=== PATIENT | male | born 1950 | race Asian ===

== ENCOUNTER 2021-02-28 07:25 | Inpatient (IN) | payer OTHER ==
[~2021-02-28] VITALS: Ht 157.5 cm; Wt 60.0 kg
[2021-02-28] MEDS ORDERED: TAMSULOSIN HYDROCHLORIDE 0.4 MG CAP PO ONE (07:45)
[2021-02-28] MEDS ORDERED: SODIUM CHLORIDE 0.9% 1,000 ML IV ONE ×2 (07:45)
[2021-02-28] MEDS ORDERED: KETOROLAC TROMETH 30 MG/ML 1ML VIAL IV ONE (07:45)
[2021-02-28 08:09] LABS: Basophils # (auto) 0.1 10 ^3/uL (0-0.2); Basophils % (auto) 0.6 % (0.0-2.0); Eosinophils # (auto) 0.1 10 ^3/uL (0-0.8); Eosinophils % (auto) 1.7 % (0.0-7.0); Hematocrit 38.7 % (41.0-53.0); Hemoglobin 13.4 g/dL (13.5-17.5); Lymphocytes # (auto) 1.3 10 ^3/uL (0.4-5.4); Lymphocytes % (auto) 14.9 % (10.0-50.0); Mean Corpuscular Hemoglobin 30.6 pg (28.0-32.0); Mean Corpuscular Hgb Conc. 34.7 g/dL (32.0-36.0); Mean Corpuscular Volume 88.3 fL (80.0-100.0); Monocytes # (auto) 0.7 10 ^3/uL (0-1.3); Monocytes % (auto) 8.2 % (0.0-12.0); Neutrophils # (auto) 6.5 10 ^3/uL (1.6-8.6); Neutrophils % (auto) 74.6 % (37.0-80.0); Platelet Count (auto) 169 10^3/uL (140-450); Red Blood Cells 4.39 10^6/uL (4.5-5.90); Red Cell Distribution Width 13.6 % (11.8-14.3); White Blood Cell 8.7 10^3/uL (4.4-10.8)
[2021-02-28 08:24] LABS: Albumin 4.1 g/dL (3.4-5.0); Calcium 8.9 mg/dL (8.5-10.1); Magnesium 2.1 mg/dL (1.6-2.6); Potassium 3.4 mmol/L (3.5-5.1)
[2021-02-28 08:26] LABS: BUN/Creatinine Ratio 15.3
[2021-02-28 08:42] LABS: Bilirubin, Total 1.3 mg/dL (0.2-1.0); Total Protein 7.2 g/dL (6.4-8.2)
[2021-02-28] MEDS ORDERED: LORazepam 0.5 MG TAB PO ONE (09:30)
[2021-02-28] MEDS ORDERED: ONDANSETRON HCL 4 MG/2 ML VIAL IV ONE (09:30)
[2021-02-28] MEDS ORDERED: MORPHINE SULFATE 4 MG/ML SYR/VIAL IV ONE (09:30)
[2021-02-28] MEDS ORDERED: ACETAMINOPHEN 500 MG TAB PO PRN (10:00)
[2021-02-28] MEDS ORDERED: MORPHINE SULF INJ 2 MG/ML SYRINGE 1ML IV PRN (10:00)
[2021-02-28] MEDS ORDERED: ONDANSETRON HCL 4 MG/2 ML VIAL IV PRN (10:00)
[2021-02-28] MEDS ORDERED: TEMAZEPAM 15 MG CAP PO PRN (10:00)
[2021-02-28] MEDS ORDERED: NITROGLYCERIN 0.4 MG SL TAB SL PRN (10:00)
[2021-02-28] MEDS ORDERED: cefTRIAXone 1GM/50ML D5W 50 ML IV ONE (10:00)
[2021-02-28] MEDS: SODIUM CHLORIDE 0.9% 1,000 ML IV SCH ×2 (10:58→20:38)
[2021-02-28] MEDS: FAMOTIDINE (10MG/ML) 2ML VL IV SCH (11:01)
[2021-02-28 11:34] LABS: Urine Bacteria NONE SEEN /hpf (None Seen); Urine Blood 2+ /uL (Negative); Urine Specific Gravity 1.011 (1.001-1.035); Urine WBC 1 /hpf (0 - 3)
[2021-02-28 18:24] VITALS: BP 126/68
[2021-02-28] MEDS ORDERED: MANNITOL FTV 25% 12.5 GM/50 ML 50 ML IV ONE (19:00)
[2021-02-28] MEDS ORDERED: TAMS0.4C36 PO (19:10)
[2021-02-28] MEDS: TAMSULOSIN HYDROCHLORIDE 0.4 MG CAP PO SCH (20:37)
[2021-02-28 22:00] VITALS: BP 114/65
[2021-03-01] MEDS: MORPHINE SULF INJ 2 MG/ML SYRINGE 1ML IV PRN ×2 (00:29→11:28)
[2021-03-01] MEDS: traMADol HCL 50 MG TAB PO PRN ×2 (02:46→12:51)
[2021-03-01 05:00] VITALS: BP 118/72
[2021-03-01 05:33] LABS: Basophils # (auto) 0 10 ^3/uL (0-0.2); Basophils % (auto) 0.1 % (0.0-2.0); Eosinophils # (auto) 0.2 10 ^3/uL (0-0.8); Eosinophils % (auto) 3.3 % (0.0-7.0); Hematocrit 33.3 % (41.0-53.0); Hemoglobin 11.6 g/dL (13.5-17.5); Lymphocytes # (auto) 0.9 10 ^3/uL (0.4-5.4); Lymphocytes % (auto) 12.3 % (10.0-50.0); Mean Corpuscular Hemoglobin 30.9 pg (28.0-32.0); Mean Corpuscular Hgb Conc. 34.9 g/dL (32.0-36.0); Mean Corpuscular Volume 88.4 fL (80.0-100.0); Monocytes # (auto) 0.6 10 ^3/uL (0-1.3); Monocytes % (auto) 7.7 % (0.0-12.0); Neutrophils # (auto) 5.6 10 ^3/uL (1.6-8.6); Neutrophils % (auto) 76.6 % (37.0-80.0); Platelet Count (auto) 135 10^3/uL (140-450); Red Blood Cells 3.77 10^6/uL (4.5-5.90); Red Cell Distribution Width 13.7 % (11.8-14.3); White Blood Cell 7.3 10^3/uL (4.4-10.8)
[2021-03-01 05:46] LABS: Albumin 2.7 g/dL (3.4-5.0); Calcium 7.5 mg/dL (8.5-10.1); Potassium 3.5 mmol/L (3.5-5.1)
[2021-03-01 05:49] LABS: BUN/Creatinine Ratio 15.8
[2021-03-01 09:00] VITALS: BP 132/78
[2021-03-01] MEDS: FAMOTIDINE (10MG/ML) 2ML VL IV SCH (10:06)
[2021-03-01] MEDS: cefTRIAXone 1GM/50ML D5W 50 ML IV SCH (10:06)
[2021-03-01] MEDS: SODIUM CHLORIDE 0.9% 1,000 ML IV SCH ×2 (10:09→16:00)
[2021-03-01 13:00] VITALS: BP 141/79
[2021-03-01] MEDS ORDERED: HYDROmorphone HCL 2 MG/ML VL IV ONE (13:00)
[2021-03-01 16:58] VITALS: BP 140/60
[2021-03-01] MEDS: TAMSULOSIN HYDROCHLORIDE 0.4 MG CAP PO SCH (18:00)
[2021-03-01] MEDS: HYDROmorphone HCL 2 MG/ML VL IV PRN (20:05)
[2021-03-01] MEDS ORDERED: MILK OF MAGNESIA 30ML SUSP PO ONE (20:30)
[2021-03-01 22:00] VITALS: BP 138/85
[2021-03-01] MEDS ORDERED: MANNITOL FTV 25% 12.5 GM/50 ML 50 ML IV ONE (22:30)
[2021-03-02] MEDS ORDERED: SODIUM CHLORIDE 0.9% 500 ML IV ONE ×2 (00:30→22:00)
[2021-03-02] MEDS: HYDROmorphone HCL 2 MG/ML VL IV PRN ×3 (01:10→18:03)
[2021-03-02] MEDS: SODIUM CHLORIDE 0.9% 1,000 ML IV SCH ×3 (03:03→21:33)
[2021-03-02 05:00] VITALS: BP 152/91
[2021-03-02 05:54] LABS: Hematocrit 37.5 % (41.0-53.0); Hemoglobin 12.7 g/dL (13.5-17.5)
[2021-03-02 06:07] LABS: Potassium 3.7 mmol/L (3.5-5.1)
[2021-03-02 06:11] LABS: BUN/Creatinine Ratio 13.4; Calcium 7.8 mg/dL (8.5-10.1); Magnesium 2.2 mg/dL (1.6-2.6)
[2021-03-02 08:52] VITALS: BP 149/93
[2021-03-02] MEDS: cefTRIAXone 1GM/50ML D5W 50 ML IV SCH (09:43)
[2021-03-02] MEDS: FAMOTIDINE (10MG/ML) 2ML VL IV SCH (09:43)
[2021-03-02 13:00] VITALS: BP 159/97
[2021-03-02] MEDS ORDERED: LACTULOSE 20Gm/30ML SOLN PO PRN (13:45)
[2021-03-02] MEDS ORDERED: DOCUSATE SOD 100 MG CAP PO ONE (13:45)
[2021-03-02 16:49] VITALS: BP 160/90
[2021-03-02] MEDS: TAMSULOSIN HYDROCHLORIDE 0.4 MG CAP PO SCH (18:03)
[2021-03-02] MEDS ORDERED: MANNITOL FTV 25% 12.5 GM/50 ML 50 ML IV ONE (20:00)
[2021-03-02] MEDS: DOCUSATE SOD 100 MG CAP PO SCH (21:33)
[2021-03-02 22:00] VITALS: BP 167/105
[2021-03-02] MEDS ORDERED: cloNIDine HCL 0.1 MG TAB PO ONE (22:30)
[2021-03-03] MEDS: HYDROmorphone HCL 2 MG/ML VL IV PRN ×3 (00:22→18:34)
[2021-03-03 05:00] VITALS: BP 146/89
[2021-03-03] MEDS: SODIUM CHLORIDE 0.9% 1,000 ML IV SCH ×2 (08:00→18:00)
[2021-03-03 09:00] VITALS: BP 136/83
[2021-03-03] MEDS: cefTRIAXone 1GM/50ML D5W 50 ML IV SCH (09:22)
[2021-03-03] MEDS: traMADol HCL 50 MG TAB PO PRN (09:22)
[2021-03-03] MEDS: DOCUSATE SOD 100 MG CAP PO SCH ×2 (10:00→22:00)
[2021-03-03] MEDS: FAMOTIDINE (10MG/ML) 2ML VL IV SCH (10:26)
[2021-03-03 11:33] LABS: BUN/Creatinine Ratio 11.1; Calcium 7.9 mg/dL (8.5-10.1); Potassium 3.6 mmol/L (3.5-5.1)
[2021-03-03 13:02] VITALS: BP 133/83
[2021-03-03] MEDS ORDERED: hydrALAZINE HCL 20 MG/ML VL IV PRN (13:45)
[2021-03-03 14:27] LABS: INR 1.03 (0.9-1.15)
[2021-03-03 17:09] VITALS: BP 148/91
[2021-03-03] MEDS: TAMSULOSIN HYDROCHLORIDE 0.4 MG CAP PO SCH (18:00)
[2021-03-03] MEDS ORDERED: SODIUM CHLORIDE LOCK 10 ML ONE (21:04)
[2021-03-03] MEDS ORDERED: ONDANSETRON HCL 4 MG/2 ML VIAL ONE (21:04)
[2021-03-03] MEDS ORDERED: MIDAZOLAM HCL 1MG/1ML-2 ML VIAL ONE (21:04)
[2021-03-03] MEDS ORDERED: PROPOFOL 10 MG/ML 20 ML IV ONE ×2 (21:04→21:48)
[2021-03-03] MEDS ORDERED: fentaNYL CITRATE 100 MCG/2 ML VL ONE (21:04)
[2021-03-03] MEDS ORDERED: KETAMINE HCL 10 ML ONE (21:04)
[2021-03-03] MEDS ORDERED: ceFAZolin 1GM/50ML 50 ML IV ONE (21:25)
[2021-03-03] MEDS ORDERED: IOHEXOL 300 MG/ML 100ML BOTTLE IJ ONE (21:39)
[2021-03-03] MEDS ORDERED: FUROSEMIDE 20 MG/2 ML VIAL ONE (22:19)
[2021-03-03] MEDS ORDERED: HYDROmorphone HCL 2 MG/ML VL IV PRN (22:30)
[2021-03-03] MEDS ORDERED: MORPHINE SULFATE 4 MG/ML SYR/VIAL IV PRN (22:30)
[2021-03-04 00:30] VITALS: BP 153/80
[2021-03-04] MEDS: SODIUM CHLORIDE 0.9% 1,000 ML IV SCH (04:13)
[2021-03-04 05:15] VITALS: BP 140/79
[2021-03-04 06:32] LABS: Basophils # (auto) 0 10 ^3/uL (0-0.2); Basophils % (auto) 0.1 % (0.0-2.0); Eosinophils # (auto) 0.1 10 ^3/uL (0-0.8); Hematocrit 34.6 % (41.0-53.0); Hemoglobin 11.7 g/dL (13.5-17.5); Lymphocytes # (auto) 0.5 10 ^3/uL (0.4-5.4); Lymphocytes % (auto) 7.1 % (10.0-50.0); Mean Corpuscular Hemoglobin 30.2 pg (28.0-32.0); Mean Corpuscular Hgb Conc. 33.9 g/dL (32.0-36.0); Monocytes # (auto) 0.5 10 ^3/uL (0-1.3); Neutrophils # (auto) 5.5 10 ^3/uL (1.6-8.6); Neutrophils % (auto) 84.8 % (37.0-80.0); Platelet Count (auto) 143 10^3/uL (140-450); Red Blood Cells 3.89 10^6/uL (4.5-5.90); Red Cell Distribution Width 13.2 % (11.8-14.3); White Blood Cell 6.5 10^3/uL (4.4-10.8)
[2021-03-04 06:51] LABS: Albumin 2.6 g/dL (3.4-5.0); Magnesium 2.3 mg/dL (1.6-2.6); Potassium 3.4 mmol/L (3.5-5.1)
[2021-03-04] MEDS: traMADol HCL 50 MG TAB PO PRN ×2 (06:52→21:20)
[2021-03-04 06:54] LABS: BUN/Creatinine Ratio 12.8; Total Protein 5.8 g/dL (6.4-8.2)
[2021-03-04] MEDS: FAMOTIDINE (10MG/ML) 2ML VL IV SCH ×2 (10:07→22:59)
[2021-03-04] MEDS: cefTRIAXone 1GM/50ML D5W 50 ML IV SCH (10:07)
[2021-03-04] MEDS: DOCUSATE SOD 100 MG CAP PO SCH ×2 (10:07→22:59)
[2021-03-04] MEDS: HYDROmorphone HCL 2 MG/ML VL IV PRN ×2 (10:40→21:12)
[2021-03-04 13:00] VITALS: BP 145/85
[2021-03-04] MEDS ORDERED: DOCU-94 PO (14:29)
[2021-03-04] MEDS ORDERED: POTASSIUM CHL 20 Meq TABLET PO ONE (14:30)
[2021-03-04] MEDS ORDERED: LEVO500T31 PO (14:33)
[2021-03-04 17:00] VITALS: BP 149/97
[2021-03-04] MEDS: TAMSULOSIN HYDROCHLORIDE 0.4 MG CAP PO SCH (18:02)
[2021-03-04 21:41] VITALS: BP 154/87
[2021-03-04 23:00] VITALS: BP 148/96
[2021-03-05 05:00] VITALS: BP 128/81
[2021-03-05 09:00] VITALS: BP 147/99
[2021-03-05] MEDS: FAMOTIDINE (10MG/ML) 2ML VL IV SCH (09:03)
[2021-03-05] MEDS: DOCUSATE SOD 100 MG CAP PO SCH (09:04)
[2021-03-05] MEDS: cefTRIAXone 1GM/50ML D5W 50 ML IV SCH (09:05)
[2021-03-05] MEDS ORDERED: POTASSIUM CHL 20 Meq TABLET PO ONE (11:45)
[2021-03-05 11:56] VITALS: BP 147/99
== END 2021-03-05 14:18 | disposition home or self-care (01) | DRG 661 ==
LOC: ER 07:25 → EDBD 07:25 → TELE 10:00 → TELE-WESTW 17:52
PROVIDERS: ADMIT Internal Medicine; ATTEND Internal Medicine
PROC: BT1D1ZZ Fluoroscopy of Right Kidney, Ureter and Bladder using Low Osmolar Contrast (ICD-10-PCS; 2021-03-03)
PROC: 0T768DZ Dilation of Right Ureter with Intraluminal Device, Via Natural or Artificial Opening Endoscopic (ICD-10-PCS; principal; 2021-03-03 21:12)
PROC: 0TC68ZZ Extirpation of Matter from Right Ureter, Via Natural or Artificial Opening Endoscopic (ICD-10-PCS; 2021-03-03 21:12)
DX: N13.2 Hydronephrosis with renal and ureteral calculous obstruction (principal); N17.0 Acute kidney failure with tubular necrosis; I10 Essential (primary) hypertension; N40.0 Benign prostatic hyperplasia without lower urinary tract symptoms; E87.6 Hypokalemia; K59.00 Constipation, unspecified; Z20.822 Contact with and (suspected) exposure to COVID-19; Z83.3 Family history of diabetes mellitus; Z87.442 Personal history of urinary calculi; R79.89 Other specified abnormal findings of blood chemistry; R00.1 Bradycardia, unspecified
CPT/HCPCS: 36415; 51702; 71045; 74018; 74176; 76775; 80048; 80053; 81001; 83735; 84484; 85014; 85018; 85025; 85610; 87086; 87426; 93005; 96361; 96365; 96375; G0378; J0690; J0696; J1885; J2250; J2405; J2704; J3490

== ENCOUNTER 2021-03-17 22:07 | Emergency (ER) | payer OTHER ==
[~2021-03-17] VITALS: Ht 157.5 cm; Wt 54.4 kg
[~2021-03-17 22:07] MED LIST: DOCU-94 PO; LEVO500T31 PO; TAMS0.4C36 PO
[2021-03-17 23:45] LABS: Basophils # (auto) 0 10 ^3/uL (0-0.2); Basophils % (auto) 0.2 % (0.0-2.0); Eosinophils # (auto) 0 10 ^3/uL (0-0.8); Eosinophils % (auto) 0.5 % (0.0-7.0); Hematocrit 35.5 % (41.0-53.0); Hemoglobin 12.1 g/dL (13.5-17.5); Lymphocytes # (auto) 0.5 10 ^3/uL (0.4-5.4); Lymphocytes % (auto) 7.3 % (10.0-50.0); Mean Corpuscular Hgb Conc. 34.2 g/dL (32.0-36.0); Mean Corpuscular Volume 87.8 fL (80.0-100.0); Monocytes # (auto) 0.3 10 ^3/uL (0-1.3); Monocytes % (auto) 4.9 % (0.0-12.0); Neutrophils # (auto) 6.1 10 ^3/uL (1.6-8.6); Neutrophils % (auto) 87.1 % (37.0-80.0); Platelet Count (auto) 299 10^3/uL (140-450); Red Blood Cells 4.04 10^6/uL (4.5-5.90); Red Cell Distribution Width 13.6 % (11.8-14.3)
[2021-03-17 23:47] LABS: Urine Bacteria FEW /hpf (None Seen); Urine Blood TRACE /uL (Negative); Urine Mucus FEW (None Seen); Urine Specific Gravity 1.009 (1.001-1.035); Urine WBC 8 /hpf (0 - 3)
[2021-03-18 00:05] LABS: Albumin 3.6 g/dL (3.4-5.0); Calcium 8.6 mg/dL (8.5-10.1); Potassium 3.3 mmol/L (3.5-5.1)
[2021-03-18 00:06] LABS: BUN/Creatinine Ratio 17.4
[2021-03-18 00:10] LABS: Bilirubin, Total 0.6 mg/dL (0.2-1.0); Total Protein 6.7 g/dL (6.4-8.2)
[2021-03-18 02:01] VITALS: BP 123/56
== END 2021-03-18 02:22 | disposition home or self-care (01) ==
LOC: EDBD 22:07 → ER 22:10
DX: R10.30 Lower abdominal pain, unspecified (principal); R33.9 Retention of urine, unspecified; Z79.2 Long term (current) use of antibiotics; Z79.899 Other long term (current) drug therapy
CPT/HCPCS: 36415; 51702; 80053; 81001; 85025